=== PATIENT | female | born 1990 | race Caucasian/White ===

== ENCOUNTER 2018-07-04 13:35 | Emergency (ER) | payer OTHER, BC | END 2018-07-04 16:20 | disposition home or self-care (01) | LOC: M ED 13:35 | DX: Z62.820 Parent-biological child conflict (principal) | CPT/HCPCS: 36415 ==

== ENCOUNTER → 2019-10-26 | Outpatient (CLI) | payer MEDICAID ==
--- NOTE | 2019-10-26 09:34 | REP ---
Clinical: Pain and viability. Technique: Transabdominal and transvaginal first trimester obstetrical ultrasound using color Doppler evaluation. Findings: Single live early intrauterine identified. Gestational sac with yolk sac and pole noted. CRL of 9 mm corresponds to 6 week 6 days gestational age with estimated date of delivery 06/14/2020. heart rate equals 109 beats per minute. Bilateral maternal ovaries are normal in appearance and vascularity. Impression: Single live early intrauterine at 6 week 6 days gestational age. Complete anatomical assessment should be performed at 19-20 weeks. Electronically Signed by Marin Chung MD 10/26/2019 09:26 A
== END ==
LOC: M RAD 08:06
PROVIDERS: ATTEND Nurse Practitioner Family
DX: Z32.01 Encounter for pregnancy test, result positive (principal); Z3A.01 Less than 8 weeks gestation of pregnancy